=== PATIENT | male | born 1980 | race Hispanic/Latino ===

== ENCOUNTER 2016-11-29 20:15 | Emergency (ER) | payer MEDICAID ==
[2016-11-29 20:15] VITALS: BMI 27.3
--- NOTE | 2016-11-29 20:44 | C.PDOC ---
History Of Present Illness 36 y/o male presents to ED with complaints of chest pain and occasional tingling sensation to bilateral arms for the past 2 days. Pt denies fever, chills, nausea, vomiting, weakness, visual changes, slurred speech, headache or any other complaints. Time Seen by Provider: 11/29/16 20:44 Chief Complaint (Nursing): Chest Pain History Per: Patient History/Exam Limitations: no limitations Onset/Duration Of Symptoms: Days Current Symptoms Are (Timing): Still Present Severity: Mild Quality: "Pain" Modifying Factors: None Alleviating Factors: None Recent travel outside of the [place]: No Past Medical History Reviewed: Historical Data, Nursing Documentation, Vital Signs Vital Signs: Last Vital Signs Temp 97.6 F 11/29/16 23:46 Pulse 68 11/29/16 23:46 Resp 16 11/29/16 23:46 BP 113/66 11/29/16 23:46 Pulse Ox 97 11/29/16 23:46 - Medical History PMH: Fractures (RT. HAND NO SURGERY) Surgical History: Endoscopy - [facility] Procedures APPLICATION OF SPLINT (07/20/14) ESOPHAGOGASTRODUODENOSCOPY [EGD] W/CLOSED BIOPSY (10/09/14) INJECT/INFUSE NEC (01/27/13) IRRIGATION OF EAR (12/05/13) Family History: States: No Known Family Hx - Social History Hx Tobacco Use: Yes Hx Alcohol Use: No Hx Substance Use: No - Immunization History Hx Tetanus Toxoid Vaccination: No Hx Influenza Vaccination: No Hx Pneumococcal Vaccination: No Review Of Systems Constitutional: Negative for: Fever, Chills Eyes: Negative for: Vision Change Cardiovascular: Positive for: Chest Pain. Negative for: Palpitations Respiratory: Negative for: Shortness of Breath Gastrointestinal: Negative for: Nausea, Vomiting Neurological: Positive for: Numbness (tingling sensation to bilateral arms). Negative for: Weakness, Change in Speech, Headache Physical Exam - Physical Exam Appears: Non-toxic, No Acute Distress Skin: Warm, Dry, No Rash Head: Atraumatic, Normacephalic Teeth: Other (braces) Neck: Supple Chest: Symmetrical, No Tenderness Cardiovascular: Rhythm Regular, No Murmur Respiratory: No Accessory Muscle Use, No Rales, No Rhonchi, No Wheezing Gastrointestinal/Abdominal: Soft, No Tenderness Extremity: No Pedal Edema Extremity: Bilateral: Atraumatic Pulses: Left Radial: Normal, Right Radial: Normal Neurological/Psych: Oriented x3, Normal Speech, Normal Cognition, Normal Cranial Nerves, Normal Motor (equal strength bilaterally), Normal Sensation, Other (no focal deficits) ED Course And Treatment - Laboratory Results Result Diagrams: 11/29/16 21:19 11/29/16 21:19 ECG: Interpreted By Me, Viewed By Me O2 Sat by Pulse Oximetry: 100 (room air) Pulse Ox Interpretation: Normal - Radiology CXR: Interpreted by Me, Viewed By Me CXR Interpretation: No: Infiltrates, Fracture, Pnemothorax Reevaluation Time: 00:47 Reassessment Condition: Improved Medical Decision Making Medical Decision Making: I considered the following diagnoses: acute coronary syndrome, pulmonary embolism, lower respiratory infection, aortic dissection/aneurysm, pneumothorax , pericarditis, esophagitis/GERD, zoster and esophageal rupture but found them to be unlikely based on the history, physical exam, and diagnostics. My conclusions regarding the unlikely diagnoses were based on: the absence of significant EKG abnormalities, the lack of suggestive x-ray findings, the absence of significant abnormalities on cardiac monitoring, the absence of asymmetric pulses. Pt feels better and wants to go home. Will follow up with dr Watts Upon provider reevaluation patient is feeling better, is medically stable, and requires no further treatment in the ED at this time. Patient will be discharged home . Counseling was provided and all questions were answered regarding diagnosis and need for follow up with dr watts. There is agreement to discharge plan. Return if symptoms persist or worsen. Disposition Counseled Patient/Family Regarding: Studies Performed, Diagnosis, Need For Followup - Disposition Referrals: Shaik Watts MD [Staff Provider] - Disposition: HOME/ ROUTINE Disposition Time: 20:44 Condition: FAIR Instructions: Chest Pain (DC), Paresthesia (ED) - Clinical Impression Clinical Impression: Chest pain, Paresthesia and pain of left extremity - Scribe Statement The provider has reviewed the documentation as recorded by the Parris Melendez Provider Attestation: All medical record entries made by the Parris were at my direction and personally dictated by me. I have reviewed the chart and agree that the record accurately reflects my personal performance of the history, physical exam, medical decision making, and the department course for this patient. I have also personally directed, reviewed, and agree with the discharge instructions and disposition.
[2016-11-29] MEDS ORDERED: Aspirin 325 mg EC Tablets PO STA (21:02)
[2016-11-29] MEDS ORDERED: Aspirin 325 mg EC Tablets PO ONE (21:11)
[2016-11-29 21:27] LABS: BASO % 0.4 % (0.0-2.0); EOS # 0.3 K/uL (0.0-0.7); EOS % 3.6 % (0.0-4.0); LYMPH % 26.2 % (20.0-40.0); MEAN CELL VOLUME 85.7 fL (80.0-94.0); MEAN CORPUSCULAR HEMOGLOBIN 29.1 pg (27.0-31.0); MEAN PLATELET VOLUME 7.8 fL (7.2-11.7); MONO # 0.6 K/uL (0.0-0.8); MONO % 8.5 % (0.0-10.0); RED CELL DISTRIBUTION WIDTH 13.8 % (11.5-14.5); WHITE BLOOD COUNT 7.7 K/uL (4.8-10.8)
[2016-11-29 21:37] LABS: INR 1.1
[2016-11-29 21:41] LABS: CHLORIDE 99 mmol/L (98-107); POTASSIUM 3.9 mmol/L (3.6-5.2); SODIUM 138 mmol/L (132-148)
[2016-11-29 21:43] LABS: GFR AFRICAN-AMERICAN > 60
[2016-11-29 21:44] LABS: ALB/GLOB RATIO 1.4 (1.0-2.1); ALKALINE PHOSPHATASE 51 U/L (38-126); ALT/SGPT 26 U/L (21-72); AST/SGOT 23 U/L (17-59); BILIRUBIN,TOTAL 0.4 mg/dL (0.2-1.3); BLOOD UREA NITROGEN 21 mg/dL (9-20); CALCIUM 8.9 mg/dl (8.6-10.4); CARBON DIOXIDE 24 mmol/L (22-30); GLUCOSE,RANDOM 86 mg/dL (75-110)
[2016-11-29 22:23] LABS: RBC URINE < 1 /hpf (0-3); URINE BILIRUBIN NEGATIVE (NEGATIVE); URINE BLOOD NEGATIVE (NEGATIVE); URINE COLOR Yellow (YELLOW); URINE GLUCOSE (UA) NORMAL (Normal); URINE KETONE NEGATIVE (NEGATIVE); URINE LEUKOCYTE ESTERASE NEG Leu/uL (Negative); URINE PROTEIN NEGATIVE (NEGATIVE); URINE UROBILINOGEN NORMAL mg/dL (0.2-1.0); WBC URINE 2 /hpf (0-5)
[2016-11-29 23:48] VITALS: RESP 16
[2016-11-30 00:57] VITALS: BP 116/71; PULSE 58; TEMP 97.7; O2SAT 97
--- NOTE | 2016-11-30 00:58 | CT ---
EXAM: CT Head Without Intravenous Contrast CLINICAL HISTORY: 36 years old, male; Pain; Headache; Additional info: Headache, TECHNIQUE: Axial computed tomography images of the head/brain without intravenous contrast. This CT exam was performed using one or more of the following dose reduction techniques: automated exposure control, adjustment of the mA and/or kV according to patient size, and/or use of iterative reconstruction technique. COMPARISON: No relevant prior studies available. FINDINGS: Brain: No intracranial hemorrhage. No mass. No definite edema. Ventricles: No hydrocephalus. Bones/joints: No acute fracture. Soft tissues: Unremarkable. Sinuses: No acute sinusitis. Mastoid air cells: No mastoid effusion. Orbits: Unremarkable as visualized. IMPRESSION: 1. No acute intracranial abnormality. 2. Incidental/non-acute findings are described above.
--- NOTE | 2016-11-30 01:01 | CT ---
EXAM: CT Cervical Spine Without Intravenous Contrast CLINICAL HISTORY: 36 years old, male; Pain; Neck pain; Additional info: Numbness left hand TECHNIQUE: Axial computed tomography images of the cervical spine without intravenous contrast. This CT exam was performed using one or more of the following dose reduction techniques: automated exposure control, adjustment of the mA and/or kV according to patient size, and/or use of iterative reconstruction technique. Coronal and sagittal reformatted images were created and reviewed. COMPARISON: No relevant prior studies available. FINDINGS: Vertebrae: No acute fracture. Mild reversal of cervical lordosis. 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 No significant central canal stenosis. Neuroforaminal narrowing within lower cervical spine. Soft tissues: Unremarkable. Lung apices: Mild apical scarring/bullous changes. IMPRESSION: 1. No fracture. 2. If symptoms persist, consider MRI for further evaluation. 3. Incidental/non-acute findings are described above.
--- NOTE | 2016-11-30 09:13 | RAD ---
PROCEDURE: CHEST RADIOGRAPH, 1 VIEW HISTORY: chest pain COMPARISON: 11/02/2015 FINDINGS: LUNGS: The lungs are well inflated and clear. There are chronic markings in both lungs. No lobar pneumonia. PLEURA: No pneumothorax or pleural fluid seen. CARDIOVASCULAR: Normal. OSSEOUS STRUCTURES: No significant abnormalities. VISUALIZED UPPER ABDOMEN: Normal. OTHER FINDINGS: None. IMPRESSION: No active pulmonary disease.
--- NOTE | 2016-12-02 12:45 | CARD ---
APPROVED REPORT EKG Measurement Heart [id number] <Conclusion> Normal sinus rhythm Possible Left atrial enlargement Borderline ECG
== END 2016-11-30 01:05 | disposition home or self-care (01) ==
LOC: C.ER 20:15
DX: R07.9 Chest pain, unspecified (principal); R20.9 Unspecified disturbances of skin sensation; M79.602 Pain in left arm

== ENCOUNTER 2017-11-19 15:14 | Emergency (ER) | payer MEDICAID, OTHER ==
[2017-11-19 15:14] VITALS: BMI 27.3
[2017-11-19 15:54] VITALS: RESP 20; TEMP 98.2
[2017-11-19 17:46] VITALS: BP 121/69; PULSE 86; O2SAT 98
--- NOTE | 2017-11-19 17:57 | C.PDOC ---
History Of Present Illness 36 year old male patient presents to the ER with c/o right forearm pain after slamming door close on the forearm. Patient is right handed. Patient has no other complaints. Chief Complaint (Nursing): Upper Extremity Problem/Injury History Per: Patient History/Exam Limitations: no limitations Onset/Duration Of Symptoms: Hrs Current Symptoms Are (Timing): Still Present Quality: "Pain" Past Medical History Reviewed: Historical Data, Nursing Documentation, Vital Signs Vital Signs: Last Vital Signs Temp 98.2 F 11/19/17 15:51 Pulse 86 11/19/17 17:12 Resp 20 11/19/17 17:12 BP 121/69 11/19/17 17:12 Pulse Ox 98 11/19/17 18:04 - Medical History PMH: Fractures (RT. HAND NO SURGERY) Surgical History: Endoscopy - [facility] Procedures APPLICATION OF SPLINT (07/20/14) ESOPHAGOGASTRODUODENOSCOPY [EGD] W/CLOSED BIOPSY (10/09/14) INJECT/INFUSE NEC (01/27/13) IRRIGATION OF EAR (12/05/13) Family History: States: Unknown Family Hx - Social History Hx Tobacco Use: Yes Hx Alcohol Use: No Hx Substance Use: No - Immunization History Hx Tetanus Toxoid Vaccination: No Hx Influenza Vaccination: No Hx Pneumococcal Vaccination: No Review Of Systems Except As Marked, All Systems Reviewed And Found Negative. Musculoskeletal: Positive for: Arm Pain (right forearm pain ) Physical Exam - Physical Exam Appears: Well, Non-toxic, No Acute Distress Skin: Normal Color, Warm, Dry Head: Atraumatic, Normacephalic Cardiovascular: Rhythm Regular Respiratory: Normal Breath Sounds Gastrointestinal/Abdominal: Normal Exam, Soft, No Tenderness Extremity: Normal ROM, No Deformity, Swelling (anterior aspect of distal right of forearm swelling), Other (anterior aspect of distal right of forearm abrasion ) Neurological/Psych: Oriented x3, Normal Speech Gait: Steady ED Course And Treatment O2 Sat by Pulse Oximetry: 98 (RA) Pulse Ox Interpretation: Normal Medical Decision Making Medical Decision Making: Impression: 36 year old male patient with right forearm pain. Plan: right forearm XR XR results are normal reassess: patient is in NAD; discharged Disposition - Disposition [facility] - Disposition: HOME/ ROUTINE Disposition Time: 16:20 Condition: GOOD Additional Instructions: WAQAR JENNINGS JR, thank you for letting us take care of you today. Your provider was Jerod Longoria DO and you were treated for SWOLLEN ARM. The emergency medical care you received today was directed at your acute symptoms. If you were prescribed any medication, please fill it and take as directed. It may take several days for your symptoms to resolve. Return to the Emergency Department if your symptoms worsen, do not improve, or if you have any other problems. Please contact your doctor or call one of the physicians/clinics you have been referred to that are listed on the Patient Visit Information form that is included in your discharge packet. Bring any paperwork you were given at discharge with you along with any medications you are taking to your follow up visit. Our treatment cannot replace ongoing medical care by a primary care provider outside of the emergency department. Thank you for allowing the [facility] team to be part of your care today. Follow up with your primary care doctor in 3-4 days for re-evaluation and further management. Prescriptions: Ibuprofen [Motrin] 600 mg PO Q6 PRN #20 tab PRN Reason: Pain, Moderate (4-7) Instructions: Contusion (DC) Forms: [employer] [facility] ([place]) - Clinical Impression Clinical Impression: Forearm contusion - Scribe Statement The provider has reviewed the documentation as recorded by the Parris Iraheta Do Provider Attestation: All medical record entries made by the Scribe were at my direction and personally dictated by me. I have reviewed the chart and agree that the record accurately reflects my personal performance of the history, physical exam, medical decision making, and the department course for this patient. I have also personally directed, reviewed, and agree with the discharge instructions and disposition.
--- NOTE | 2017-11-19 18:32 | RAD ---
Right forearm two views History: Fracture. Comparison: None available. Findings: No evidence of acute displaced fracture or dislocation. Soft tissue swelling. Impression: Soft tissue swelling. If pain persists, consider MRI.
== END 2017-11-19 17:13 | disposition home or self-care (01) ==
LOC: C.ER 15:14
DX: S50.11XA Contusion of right forearm, initial encounter (principal); W23.0XXA Caught, crushed, jammed, or pinched between moving objects, initial encounter; Z72.0 Tobacco use